=== PATIENT | female | born 1995 | race Caucasian/White ===

== ENCOUNTER 2016-08-30 15:21 | Inpatient (IN) | payer OTHER, MEDICAID ==
[~2016-08-30] VITALS: Ht 172.7 cm; Wt 94.0 kg
[2016-09-13] MEDS ORDERED: D5%-LACTATED RINGERS 1,000 ML IV SCH (19:59)
[2016-09-13] MEDS ORDERED: OXYTOCIN 30U/ 0.9% NaCL 500ML 500 ML IV PRN (19:59)
[2016-09-13] MEDS ORDERED: OXYTOCIN 30U/ 0.9% NaCL 500ML 500 ML IV ONE (19:59)
[2016-09-13] MEDS ORDERED: FENTANYL PF 100 MCG/2ML IV PRN (20:00)
[2016-09-13] MEDS ORDERED: TERBUTALINE 1 MG/ML, 1ML IVPush PRN (20:00)
[2016-09-13] MEDS ORDERED: CALCIUM CARBONATE 500 MG TAB.CHEW PO PRN (20:00)
[2016-09-13] MEDS ORDERED: SODIUM CITRATE/CITRIC ACID 30 ML UDC PO PRN (20:00)
[2016-09-13] MEDS ORDERED: NEWBORN KIT ONE (20:05)
[2016-09-13] MEDS ORDERED: OXYTOCIN 30U/ 0.9% NaCL 500ML 500 ML ONE (20:05)
[2016-09-13] MEDS: LACTATED RINGERS 1,000 ML IV SCH (20:10)
[2016-09-13] MEDS ORDERED: MISOPROSTOL 25 MCG TABLET ONE (20:16)
[2016-09-13] MEDS: MISOPROSTOL 25 MCG TABLET VG PRN (20:30)
[2016-09-13 20:57] VITALS: BP 127/80
[2016-09-14] MEDS ORDERED: MISOPROSTOL 25 MCG TABLET ONE (00:04)
[2016-09-14] MEDS ORDERED: LIDOCAINE 1%, 20ML ONE (00:05)
[2016-09-14] MEDS: MISOPROSTOL 25 MCG TABLET VG PRN (00:35)
[2016-09-14] MEDS ORDERED: FENTANYL PF 100 MCG/2ML ONE ×3 (08:19→22:35)
[2016-09-14] MEDS: FENTANYL PF 100 MCG/2ML IVPush PRN ×2 (08:21→09:18)
[2016-09-14] MEDS ORDERED: METOCLOPRAMIDE 5 MG/ML, 2ML ONE ×2 (10:56→20:18)
[2016-09-14] MEDS ORDERED: OXYTOCIN 10 UNITS/ML, 1ML ONE (10:56)
[2016-09-14] MEDS ORDERED: CEFAZOLIN 1,000 MG ONE (10:56)
[2016-09-14] MEDS ORDERED: ONDANSETRON 2MG/ML, 2ML ONE (10:56)
[2016-09-14] MEDS ORDERED: KETOROLAC 30 MG/1 ML ONE (10:56)
[2016-09-14] MEDS: LACTATED RINGERS 1,000 ML IV SCH ×2 (12:22→13:11)
[2016-09-14] MEDS ORDERED: FENTANYL/BUPIV./NS/PF 250 ML EPIDCONT ONE (13:03)
[2016-09-14] MEDS ORDERED: LACTATED RINGERS 1,000 ML IV SCH ×3 (16:11→22:30)
[2016-09-14] MEDS ORDERED: FENTANYL/BUPIV./NS/PF 250 ML EPIDCONT SCH (16:11)
[2016-09-14] MEDS ORDERED: NALOXONE 0.4 MG/ML, 1ML IVPush PRN (16:30)
[2016-09-14] MEDS ORDERED: EPHEDRINE 50 MG/ML, 1ML IVPush PRN (16:30)
[2016-09-14] MEDS ORDERED: LACTATED RINGERS 1,000 ML IVBOLUS PRN (16:30)
[2016-09-14 19:32] VITALS: BP 125/63
[2016-09-14] MEDS ORDERED: CEFAZOLIN PMX 1GM/50ML 50 ML ONE (20:19)
[2016-09-14] MEDS ORDERED: SODIUM CITRATE/CITRIC ACID 30 ML UDC ONE (20:19)
[2016-09-14] MEDS ORDERED: OXYTOCIN 30U/ 0.9% NaCL 500ML 500 ML IV SCH (22:13)
[2016-09-14] MEDS ORDERED: OXYTOCIN 30U/ 0.9% NaCL 500ML 500 ML ONE (22:26)
[2016-09-14] MEDS ORDERED: SODIUM CITRATE/CITRIC ACID 30 ML UDC PO ONE (22:30)
[2016-09-14] MEDS ORDERED: LACTATED RINGERS 1,000 ML IVBOLUS ONE (22:30)
[2016-09-14] MEDS ORDERED: METOCLOPRAMIDE 5 MG/ML, 2ML IV ONE (22:30)
[2016-09-14] MEDS ORDERED: LIDOCAINE/MPF 2%-EPI 1:200K, 20 ML ONE (22:35)
[2016-09-14] MEDS: OXYTOCIN 30U/ 0.9% NaCL 500ML 500 ML IV SCH (23:54)
[2016-09-15] MEDS ORDERED: ONDANSETRON 2MG/ML, 2ML IV PRN
[2016-09-15] MEDS ORDERED: SIMETHICONE 80 MG CHEW TAB PO PRN
[2016-09-15] MEDS ORDERED: METOCLOPRAMIDE 5 MG/ML, 2ML IV PRN
[2016-09-15] MEDS ORDERED: ACETAMINOPHEN 325 MG TABLET PO PRN
[2016-09-15] MEDS ORDERED: CALCIUM CARBONATE 500 MG TAB.CHEW PO PRN
[2016-09-15 02:20] VITALS: BP 112/69
[2016-09-15] MEDS: LACTATED RINGERS 1,000 ML IV SCH ×5 (03:11→23:54)
[2016-09-15] MEDS: OXYcodone/APAP 5/325MG TABLET PO PRN ×4 (03:58→18:07)
[2016-09-15 06:00] VITALS: BP 115/72
[2016-09-15] MEDS: KETOROLAC 30 MG/1 ML IV SCH ×5 (06:06→23:57)
[2016-09-15 07:40] VITALS: BP 109/69
[2016-09-15] MEDS: DOCUSATE 100 MG CAPSULE PO PRN ×2 (08:28→23:57)
[2016-09-15] MEDS: PRENATAL VIT/IRON/FA 1 EACH TABLET PO SCH (08:28)
[2016-09-15 13:00] VITALS: BP 120/77
[2016-09-15] MEDS: OXYTOCIN 30U/ 0.9% NaCL 500ML 500 ML IV SCH (19:54)
[2016-09-15 20:45] VITALS: BP 107/67
[2016-09-16] MEDS: OXYcodone/APAP 5/325MG TABLET PO PRN ×6 (00:07→23:40)
[2016-09-16] MEDS: LACTATED RINGERS 1,000 ML IV SCH ×5 (05:54→23:54)
[2016-09-16] MEDS: OXYTOCIN 30U/ 0.9% NaCL 500ML 500 ML IV SCH ×2 (05:54→15:54)
[2016-09-16] MEDS: KETOROLAC 30 MG/1 ML IV SCH ×4 (06:25→18:04)
[2016-09-16 07:45] VITALS: BP 109/72
[2016-09-16] MEDS: PRENATAL VIT/IRON/FA 1 EACH TABLET PO SCH (08:21)
[2016-09-16] MEDS: DOCUSATE 100 MG CAPSULE PO PRN ×2 (08:21→23:40)
[2016-09-16] MEDS: IBUPROFEN 600 MG TABLET PO PRN ×2 (18:08→23:40)
[2016-09-16 19:45] VITALS: BP 113/76
[2016-09-17] MEDS: LACTATED RINGERS 1,000 ML IV SCH (01:54)
[2016-09-17] MEDS: OXYTOCIN 30U/ 0.9% NaCL 500ML 500 ML IV SCH (01:54)
[2016-09-17] MEDS: IBUPROFEN 600 MG TABLET PO PRN (06:20)
[2016-09-17 08:15] VITALS: BP 114/74
[2016-09-17] MEDS: PRENATAL VIT/IRON/FA 1 EACH TABLET PO SCH (08:31)
[2016-09-17] MEDS: DOCUSATE 100 MG CAPSULE PO PRN (08:31)
[2016-09-17] MEDS ORDERED: IBUP-1222 PO (10:11)
[2016-09-17] MEDS ORDERED: DOCU-30 PO (10:11)
[2016-09-17] MEDS ORDERED: OXYC-302 PO (10:13)
== END 2016-09-17 13:09 | disposition home or self-care (01) | DRG 766 ==
LOC: LDIP 09-13 19:56 → 2NW 09-15 02:00
PROVIDERS: ADMIT Obstetrics & Gynecology; ATTEND Obstetrics & Gynecology
PROC: 10D00Z1 Extraction of Products of Conception, Low, Open Approach (ICD-10-PCS; principal; 2016-09-14)
DX: O48.0 Post-term pregnancy (principal); Z37.0 Single live birth; Z3A.41 41 weeks gestation of pregnancy; O99.344 Other mental disorders complicating childbirth; F32.9 Major depressive disorder, single episode, unspecified; O76 Abnormality in fetal heart rate and rhythm complicating labor and delivery; O62.1 Secondary uterine inertia; O90.81 Anemia of the puerperium; D64.9 Anemia, unspecified
CPT/HCPCS: 36415; 85025; 86850; 86900; J0690; J1885; J2405; J3010; J3490; J2590; J2765; J7120